=== PATIENT | female | born 1970 | race Caucasian/White ===

== ENCOUNTER 2017-08-11 11:47 | Emergency (ER) | payer BC ==
[~2017-08-11] VITALS: Ht 172.7 cm; Wt 76.2 kg
--- NOTE | 2017-08-11 12:04 | NUR ---
PRESENTS SELF TO ED DT LOWER BACK PAIN, 07/20, RADIATING TO RIGHT LEG SINCE THIS AM, PATIENT DENIES INJURY NOR TRAUMA, ABLE TO AMBULATE. VSS
[2017-08-11] MEDS ORDERED: DEXAMETHASONE SOD PHOSPHATE 10 MG/ML VIAL ONE (12:34)
[2017-08-11] MEDS ORDERED: KETOROLAC TROMETHAMINE INJ 30 MG/ML VIAL ONE (12:35)
[2017-08-11 12:41] VITALS: BP 120/80
--- NOTE | 2017-08-11 12:41 | NUR ---
Patient discharged to home in stable condition. Written and verbal after care instructions given. Patient verbalizes understanding of instruction.
[2017-08-11] MEDS ORDERED: DEXAMETHASONE SOD PHOSPHATE 4 MG/ML VIAL IM ONE (13:00)
[2017-08-11] MEDS ORDERED: KETOROLAC TROMETHAMINE INJ 60 MG/2 ML VIAL IM ONE (13:00)
== END 2017-08-11 12:42 | disposition home or self-care (01) ==
LOC: ER 11:49
DX: M54.17 Radiculopathy, lumbosacral region (principal); M51.36 Other intervertebral disc degeneration, lumbar region; Z88.5 Allergy status to narcotic agent
CPT/HCPCS: 96372 ×2; 99284; A4606; J1100; J1885; Z7610